=== PATIENT | female | born 1960 | race Caucasian/White ===

== ENCOUNTER 2024-07-26 18:36 | Inpatient (IN) | payer MEDICARE ==
[~2024-07-26] VITALS: Ht 167.6 cm; Wt 74.8 kg
[2024-07-26] MEDS: KETOROLAC TROMETHAMINE 30 MG INJ IVP ONE (20:23)
[2024-07-26] MEDS: ONDANSETRON 4 MG/2 ML VIAL IV ONE (20:23)
[2024-07-26 20:28] LABS: BASOPHILS % (AUTO) 0.5 % (0.0-2.0); EOSINOPHILS # (AUTO) 0.1 K/uL (0.0-0.7); EOSINOPHILS % (AUTO) 1.3 % (0.0-7.0); HEMATOCRIT 39.9 % (31.2-41.9); HEMOGLOBIN 13.4 g/dL (10.9-14.3); LYMPHOCYTES # (AUTO) 1.8 K/uL (0.8-4.8); LYMPHOCYTES % (AUTO) 25.7 % (20.5-51.5); MEAN CORPUSCULAR HEMOGLOBIN 31.4 uug (24.7-32.8); MEAN CORPUSCULAR HGB CONC 34 g/dL (32.3-35.6); MEAN CORPUSCULAR VOLUME 93.7 fL (75.5-95.3); MONOCYTES # (AUTO) 0.5 K/uL (0.1-1.30); MONOCYTES % (AUTO) 6.5 % (0.0-11.0); NEUTROPHILS # (AUTO) 4.6 K/uL (1.8-8.9); PLATELET COUNT (AUTO) 249 K/uL (179-408); RED BLOOD CELL COUNT(AUTO) 4.25 MIL/uL (3.63-4.92); RED CELL DISTRIBUTION WIDTH 14.3 % (12.3-17.7)
[2024-07-26 20:34] LABS: DIFFERENTIAL COMMENT 1
[2024-07-26 20:37] LABS: ERYTHROCYTE SEDIMENTATION RATE 13 MM/HR (0-20)
[2024-07-26 20:38] LABS: CALCIUM 9.3 mg/dL (8.5-10.1); CREATININE 0.8 mg/dL (0.6-1.3); POTASSIUM 3.9 mmol/L (3.5-5.1)
[2024-07-26 20:44] LABS: ALBUMIN 3.9 g/dL (3.4-5.0); BILIRUBIN,TOTAL 0.3 mg/dL (0.2-1.0); TOTAL PROTEIN, SERUM 8.1 g/dL (6.4-8.2)
[2024-07-26] MEDS ORDERED: IBUPROFEN 600 MG TABLET ONE (22:04)
[2024-07-26] MEDS: IBUPROFEN 600 MG TABLET PO ONE (22:08)
[2024-07-27] MEDS ORDERED: MAGNESIUM HYDROXIDE 30 ML LIQUID UDC PO PRN (00:30)
[2024-07-27] MEDS ORDERED: ONDANSETRON 4 MG/2 ML VIAL IV PRN (00:30)
[2024-07-27] MEDS: IV NS 1000 ML 1,000 ML IV SCH (02:00)
[2024-07-27] MEDS: MAGNESIUM SULFATE/D5W 100 ML IV SCH (02:00)
[2024-07-27] MEDS: IBUPROFEN 600 MG TABLET PO PRN (06:14)
[2024-07-27 06:26] VITALS: BP 140/60; TEMP 97.8; O2SAT 98
[2024-07-27 08:15] LABS: BASOPHILS % (AUTO) 0.4 % (0.0-2.0); EOSINOPHILS # (AUTO) 0.1 K/uL (0.0-0.7); EOSINOPHILS % (AUTO) 1.9 % (0.0-7.0); HEMATOCRIT 39.6 % (31.2-41.9); HEMOGLOBIN 13.3 g/dL (10.9-14.3); LYMPHOCYTES # (AUTO) 1.8 K/uL (0.8-4.8); LYMPHOCYTES % (AUTO) 27.2 % (20.5-51.5); MEAN CORPUSCULAR HEMOGLOBIN 31.4 uug (24.7-32.8); MEAN CORPUSCULAR HGB CONC 34 g/dL (32.3-35.6); MEAN CORPUSCULAR VOLUME 93.3 fL (75.5-95.3); MONOCYTES # (AUTO) 0.5 K/uL (0.1-1.30); MONOCYTES % (AUTO) 7.6 % (0.0-11.0); NEUTROPHILS # (AUTO) 4.1 K/uL (1.8-8.9); NEUTROPHILS % (AUTO) 62.9 % (38.5-71.5); PLATELET COUNT (AUTO) 241 K/uL (179-408); RED BLOOD CELL COUNT(AUTO) 4.24 MIL/uL (3.63-4.92); RED CELL DISTRIBUTION WIDTH 14.1 % (12.3-17.7); WHITE BLOOD COUNT (AUTO) 6.5 K/uL (3.8-11.8)
[2024-07-27 08:21] LABS: DIFFERENTIAL COMMENT 1
[2024-07-27 08:30] LABS: CREATININE 0.8 mg/dL (0.6-1.3); PHOSPHOROUS 3.4 mg/dL (2.5-4.9); POTASSIUM 4.1 mmol/L (3.5-5.1)
[2024-07-27 09:00] VITALS: BP 115/71; TEMP 98.1; O2SAT 97
[2024-07-27 10:41] LABS: *BILIRUBIN,URIN NEGATIVE (NEGATIVE); *CLARITY,URINE CLEAR (CLEAR); *COLOR,URINE YELLOW (YELLOW); *KETONES,URINE NEGATIVE (NEGATIVE); *PROTEIN,URINE NEGATIVE (NEGATIVE); *UROBILINOGEN,URINE 0.2 E.U./dl (NORMAL); LEUKOCYTE ESTERASE ,URINE NEGATIVE (NEGATIVE); NITRITE, URINE NEGATIVE (NEGATIVE); UGLUCOSE NEGATIVE (NEGATIVE)
[2024-07-27 11:06] LABS: *BLOOD, URINE TRACE (NEGATIVE)
[2024-07-27 11:21] LABS: BACTERIA,URINE FEW /HPF (NONE SEEN); SQUAMOUS EPITHELIAL CELL,UR FEW /HPF (NONE SEEN); WBC,URINE 0-3 /HPF (0-3)
[2024-07-27 13:50] LABS: THYROID STIMULATING HORMONE 6.839 mIU/mL (0.358-3.740)
[2024-07-27] MEDS ORDERED: SWABABLE VALVE TRANSFER SET EA MC ONE (15:26)
[2024-07-27] MEDS ORDERED: IV NORMAL SALINE 250 ML IV ONE (15:26)
[2024-07-27] MEDS ORDERED: IOHEXOL 350 100 ML INFUS..BTL ONE (15:26)
[2024-07-27 20:00] VITALS: BP 123/81; TEMP 98.4
== END 2024-07-27 22:25 | disposition home or self-care (01) | DRG 103 ==
LOC: ER 18:36 → MEDSURG3 07-27 00:44
PROVIDERS: ATTEND Nurse Practitioner Acute Care
DX: G43.109 Migraine with aura, not intractable, without status migrainosus (principal); E03.9 Hypothyroidism, unspecified; E78.5 Hyperlipidemia, unspecified; Z88.6 Allergy status to analgesic agent; Z88.5 Allergy status to narcotic agent; Z87.891 Personal history of nicotine dependence; Z86.19 Personal history of other infectious and parasitic diseases; Z87.820 Personal history of traumatic brain injury
CPT/HCPCS: 36415; 70030-TC; 70450; 70496; 70551; 83735; 83921; 84100; 84443; 85025; 85651; A4663; G0378; J7040; Q9967